=== PATIENT | male | born 1995 ===

== ENCOUNTER 2018-07-18 22:55 | Emergency (ER) | payer SELFPAY ==
[~2018-07-18] VITALS: Ht 172.7 cm; Wt 63.5 kg
[2018-07-18 23:20] VITALS: BP 148/85
[2018-07-19] MEDS ORDERED: KETOROLAC TROMETH 60MG/2ML VIAL IM ONE (00:30)
== END 2018-07-19 02:58 | disposition home or self-care (01) ==
LOC: ER 22:55
DX: S20.211A Contusion of right front wall of thorax, initial encounter (principal); S00.93XA Contusion of unspecified part of head, initial encounter; S30.1XXA Contusion of abdominal wall, initial encounter; V43.62XA Car passenger injured in collision with other type car in traffic accident, initial encounter; Y93.89 Activity, other specified; Y99.8 Other external cause status; Y92.410 Unspecified street and highway as the place of occurrence of the external cause
CPT/HCPCS: 71250; 74176; 96372; 99284; J1885